=== PATIENT | female | born 2000 | race Caucasian/White ===

== ENCOUNTER 2021-01-30 19:09 | Emergency (ER) | payer OTHER ==
[~2021-01-30] VITALS: Ht 157.5 cm; Wt 52.2 kg
[2021-01-30 19:33] LABS: ABSOLUTE EOSINOPHILS 0.1 thou/uL (0.0-0.7); ABSOLUTE LYMPHOCYTES 2.1 thou/uL (0.8-5.3); ABSOLUTE MONOCYTES 0.5 thou/uL (0.0-1.2); ABSOLUTE NEUTROPHILS 4.2 thou/uL (1.6-8.1); BASOPHILS 0.6 %; EOSINOPHILS 1.3 %; HEMATOCRIT 38.9 % (37.0-47.0); HEMOGLOBIN 13.3 gm/dL (12.0-15.0); LYMPHOCYTES 30.2 %; MCH 32.6 pg (26.0-34.0); MCHC 34.1 g/dL (28.0-37.0); MCV 95.6 fL (80.0-100.0); MONOCYTES 6.9 %; MPV 9.3 fl. (7.2-11.1); NUCLEATED RBCS 0 /100WBC; PLATELET COUNT* 164 thou/uL (150-400); RBC 4.07 mil/uL (4.20-5.00); RDW-CV 12.4 % (10.5-14.5); WBC 6.9 thou/uL (4.0-11.0)
[2021-01-30 19:46] LABS: CALCIUM 8.5 mg/dL (8.5-10.1); CREATININE 0.7 mg/dL (0.6-1.3); POTASSIUM 4.1 mmol/L (3.5-5.1)
[2021-01-30 19:51] LABS: ALBUMIN 3.9 g/dL (3.4-5.0); TOTAL BILIRUBIN 0.4 mg/dL (<0.1-1.0); TOTAL PROTEIN 7.1 g/dL (6.4-8.2)
[2021-01-30 21:15] LABS: URINE BILIRUBIN NEGATIVE (Negative); URINE BLOOD NEGATIVE (Negative); URINE CLARITY CLEAR; URINE COLOR YELLOW; URINE GLUCOSE-RANDOM NEGATIVE (Negative); URINE KETONES NEGATIVE (Negative); URINE LEUKOCYTES-REFLEX NEGATIVE (Negative); URINE NITRITE-REFLEX NEGATIVE (Negative); URINE PROTEIN NEGATIVE (Negative); URINE UROBILINOGEN 0.2 E.U./dl (0.2-1.0)
[2021-01-30 21:30] VITALS: BP 94/70
--- NOTE | 2021-01-31 14:23 | EKG ---
[place] [address] ELECTROCARDIOGRAM REPORT Name: CISCO MARTINEZ Room: [facility]#: [id number] Admission: 01/30/21 Attend Phys: Discharge: 01/30/21 Date of : 00 Date of Service: 01/30/212001 Report #: [id number] THIS REPORT FOR: //name// [facility] ED Test Date: 2021-01-30 Test Time: 20:02:41 Pat Name: CISCO MARTINEZ Department: Room: Gender: F Roll Picker: : [id number] Requested By: Spike Mcwilliams Order Number: [id number] MD: Marcio Denton Measurements Intervals [place] Rate: 75 P: 62 NC: 167 QRS: 81 QRSD: 81 T: 35 QT: 357 QTc: 399 Interpretive Statements Sinus rhythm No previous ECG available for comparison Electronically Signed On 01-31-2021 14:22:55 CDT by Marcio Denton [email or web address] <ELECTRONICALLY SIGNED> By: Marcio Denton MD, [facility] 01/31/21 1422 01 01 Marcio Denton MD, FACC /EPI
== END 2021-01-30 21:31 | disposition home or self-care (01) ==
LOC: M.ERS 19:09
PROVIDERS: Physician Assistant
DX: R55 Syncope and collapse (principal); R42 Dizziness and giddiness; Z86.2 Personal history of diseases of the blood and blood-forming organs and certain disorders involving the immune mechanism